=== PATIENT | female | born 1985 | race Caucasian/White ===

== ENCOUNTER 2021-01-04 13:20 | Emergency (ER) | payer OTHER ==
[~2021-01-04] VITALS: Ht 160 cm; Wt 48.5 kg
[~2021-01-04 13:20] MED LIST: AUGMENTIN 875875 MG PO; CIPROFLOXACIN500 M3 PO; FLOMAX PO; NOHOMEMEDICATIONS; PERCOCET 5-3251 EACH PO; ZOFRAN 4 MG ORAL4 M1 DIS
[2021-01-04] MEDS ORDERED: ALPRAZOLAM XR3 MG PO (13:30)
[2021-01-04] MEDS ORDERED: DEPO-PROVE150 MG/11 IM (13:30)
[2021-01-04] MEDS ORDERED: NAPROSYN500 MG PO (14:02)
[2021-01-04 14:05] VITALS: BP 126/72
== END 2021-01-04 14:06 | disposition home or self-care (01) ==
LOC: M.ERS 13:20
DX: M77.8 Other enthesopathies, not elsewhere classified (principal)